=== PATIENT | male | born 1990 | race Two or more races ===

== ENCOUNTER → 2024-05-14 | Outpatient (CLI) | payer OTHER ==
[~2024-05-14] MED LIST: ALBU90OI INH; ALBU90OI6 INH; ALPR.5 PO; AMOX500 PO; ANXIETY MED; ARIP10 PO; AZIT250 PO; CODGUAEL PO; DIPATR PO; ESOM20 PO; FANAPT4 MG; Flomax0.4 MG PO; GABA100 PO; HYDACE25S PR; HYDACE5325 PO; HYDPAM50 PO; HYDR1TAB94 PO; IBUP600 PO; LISHYD1012 PO; LISHYD2025 PO; LISI10 PO; LISI5 PO; MIRT30 PO; Mucinex600 MG PO; PARO20 PO; PRED20 PO; PROM25 PO; Percocet 5-3251 EACH PO; QUET25 PO; RANI150 PO; RXHYD5325 PO; Ultram50 MG PO; Veetids 500500 MG PO; ZESTORETIC 20-121 EA PO; Zofran Odt4 MG SL
[2024-05-14 15:48] LABS: Calcium, Urine 16.3 mg/dL (< 17.5); Calcium, Urine Calculation 487.4 mg/24hrs (42.0-353.0); Phosphorus, Urine 45.3 mg/dL (20.0-60.0)
[2024-05-14 15:50] LABS: Creatinine Urine 58.8 mg/dL (27.00-270.00); Protein, Urine Quantitative 10.5 mg/dL (0.0-11.9)
[2024-05-14 15:53] LABS: Microalbumin, Urine Quant. 27.8 mg/L (0.000-20.000); Uric Acid, Urine 28.4 mg/dL (7.5-49.5)
== END | disposition home or self-care (01) ==
LOC: LAB 10:36 → LAB SHORT 10:36 → LAB FUT 05-13 11:35
PROVIDERS: Internal Medicine Nephrology
DX: N18.2 Chronic kidney disease, stage 2 (mild) (principal); D63.1 Anemia in chronic kidney disease; N25.81 Secondary hyperparathyroidism of renal origin; E55.9 Vitamin D deficiency, unspecified; E78.00 Pure hypercholesterolemia, unspecified; R76.9 Abnormal immunological finding in serum, unspecified; R94.5 Abnormal results of liver function studies; R94.6 Abnormal results of thyroid function studies; D51.8 Other vitamin B12 deficiency anemias; D50.9 Iron deficiency anemia, unspecified; D52.8 Other folate deficiency anemias
CPT/HCPCS: 81050; 82043; 82340; 82570; 84105; 84133; 84156; 84300; 84560

== ENCOUNTER 2025-04-06 01:58 | Emergency (ER) | payer OTHER ==
[~2025-04-06] VITALS: Ht 167.6 cm; Wt 108.9 kg
[2025-04-06] MEDS ORDERED: Ketorolac Tromethamine 15mg Vial IM ONE (03:50)
[2025-04-06 04:16] VITALS: BP 175/116
[2025-04-06] MEDS ORDERED: ACET500 PO (04:36)
[2025-04-06] MEDS ORDERED: IBUP600 PO (04:36)
[2025-04-06] MEDS ORDERED: AMOCLA875 PO (04:36)
== END 2025-04-06 04:48 | disposition home or self-care (01) ==
LOC: ER 01:58
DX: K02.9 Dental caries, unspecified (principal); I10 Essential (primary) hypertension; Z87.891 Personal history of nicotine dependence; Z79.899 Other long term (current) drug therapy
CPT/HCPCS: 96372; 99282-25; A9270; J1885

== ENCOUNTER 2025-08-19 13:59 | Emergency (ER) | payer OTHER ==
[~2025-08-19] VITALS: Ht 167.6 cm; Wt 108.9 kg
[~2025-08-19 13:59] MED LIST changes: +ACET500 PO; +AMOCLA875 PO
[2025-08-19 14:13] LABS: BASOPHILS ABSOLUTE AUTO 0.08 K/mm3 (0.00-0.23); BASOPHILS PERCENT AUTO 1 % (0-2); EOSINOPHILS ABSOLUTE AUTO 0.46 K/mm3 (0.00-0.68); EOSINOPHILS PERCENT AUTO 5 % (0-6); Hematocrit 42.7 % (37.0-53.0); Hemoglobin 14.6 g/dL (13.5-17.5); IMMATURE GRAN ABSOLUTE AUTO 0.03 K/mm3 (0.00-0.10); IMMATURE GRAN PERCENT AUTO 0 % (0-1); LYMPHOCYTES ABSOLUTE AUTO 3.64 K/mm3 (0.84-5.20); LYMPHOCYTES PERCENT AUTO 38 % (21-46); MONOCYTES ABSOLUTE AUTO 0.86 K/mm3 (0.16-1.47); MONOCYTES PERCENT AUTO 9 % (4-13); Mean Corpuscular HGB Conc 34.2 g/dL (31.5-36.5); Mean Corpuscular Volume 89 fL (80-100); NEUTROPHILS ABSOLUTE AUTO 4.49 K/mm3 (1.96-9.15); NEUTROPHILS PERCENT AUTO 47 % (41-73); NRBC ABSOLUTE 0.00 K/mm3 (0.00-0.02); NRBC Auto 0.0 /100 WBC (0.0-0.2); Platelet Count 262 K/mm3 (150-400); RDW Coefficient Variation 11.9 % (11.7-14.2); RDW Standard Deviation 38.9 fL (35.1-46.3)
[2025-08-19 14:46] LABS: Alanine Aminotransfer (ALT/SGP 37.0 U/L (12-78); Albumin, Blood 3.6 g/dL (3.4-5.0); Albumin/Globulin Ratio 1.2 (0.8-1.8); Anion Gap 7.0 mmol/L (3-11); Aspartate Aminotrans (AST/SGOT 20.0 U/L (12-37); Bilirubin, Total 0.3 mg/dL (0.1-1.0); Blood Urea Nitrogen 14.0 mg/dL (8-24); CO2, Blood 27.0 mmol/L (21-32); Calcium, Blood 8.8 mg/dL (8.5-10.1); Chloride, Blood 108.0 mmol/L (98-108); Creatinine, Blood 0.8 mg/dL (0.60-1.20); Globulin, Blood 3.1 g/dL (2.2-4.0); Glucose, Blood 101.0 mg/dL (70-99); Potassium, Blood 3.9 mmol/L (3.5-5.5); Sodium, Blood 138.0 mmol/L (136-145); Total Protein, Blood 6.7 g/dL (6.4-8.2)
[2025-08-19 17:40] VITALS: BP 168/123
== END 2025-08-19 17:46 | disposition home or self-care (01) ==
LOC: ER 13:59
PROVIDERS: Emergency Medicine
DX: R07.9 Chest pain, unspecified (principal); I10 Essential (primary) hypertension; Z79.899 Other long term (current) drug therapy
CPT/HCPCS: 71046; 80053; 83690; 83880; 84484; 85025; 93005; 93010; 99285-25